=== PATIENT | female | born 1985 | race Caucasian/White ===

== ENCOUNTER 2017-05-03 08:17 | Emergency (ER) | payer BC ==
[2017-05-03 08:34] VITALS: BP 130/84
--- NOTE | 2017-05-03 08:43 | UC ---
Throat Pain/Nasal Chuy HPI - HPI Summary HPI Summary: sore throat x 1 weeks cold sx for the past 2 weeks, nasal congestion , pnd, cough low grade fever, chills, - History of Current Complaint Chief Complaint: UCGeneralIllness Stated Complaint: SORE THROAT,EARS Time Seen by Provider: 05/03/17 08:35 Hx Obtained From: Patient Hx Last Menstrual Period: 04/19/17 ?: No Onset/Duration: Gradual Onset, Lasting Weeks - 1, Still Present Severity: Moderate Cough: Nonproductive Associated Signs & Symptoms: Positive: Hoarseness, Nasal Discharge, Fever. Negative: Dysphagia, FB Sensation, Drooling, Wheezing, Sinus Discomfort, Vomiting, Rash - Allergies/Home Medications Allergies/Adverse Reactions: Allergies Allergy/AdvReac Type Severity Reaction Status Date / Time Cefaclor [From [facility]] Allergy Hives Verified 05/03/17 08:34 Home Medications: Home Medications FLUoxetine CAP* [PROzac CAP*] 40 mg PO DAILY 05/03/17 [History Confirmed ] buPROPion TAB* [Wellbutrin TAB*] 150 mg PO DAILY 05/03/17 [History Confirmed ] PMH/Surg Hx/FS Hx/Imm Hx Psychological History: Depression - Surgical History Surgical History: None - Family History Known Family History: Negative: Diabetes - Social History Alcohol Use: None Substance Use Type: None Smoking Status (MU): Never Smoked Tobacco Review of Systems Constitutional: Fever, Chills Skin: Negative Eyes: Negative ENT: Sore Throat, Nasal Discharge Respiratory: Cough Cardiovascular: Negative Gastrointestinal: Negative Is Patient Immunocompromised?: No All Other Systems Reviewed And Are Negative: Yes Physical Exam Triage Information Reviewed: Yes Appearance: Well-Appearing, No Pain Distress, Well-Nourished Vital Signs: Initial Vital Signs Temp 98.4 F 05/03/17 08:28 Pulse 70 05/03/17 08:28 Resp 18 05/03/17 08:28 BP 130/84 05/03/17 08:28 Pulse Ox 100 05/03/17 08:28 Vital Signs Reviewed: Yes Eyes: Positive: Conjunctiva Clear ENT: Positive: Normal ENT inspection, Hearing grossly normal, Pharyngeal erythema, Nasal congestion, Nasal drainage, TMs normal Neck: Positive: Supple, Nontender, No Lymphadenopathy Respiratory: Positive: Chest non-tender, Lungs clear, Normal breath sounds Cardiovascular: Positive: RRR, No Murmur, Pulses Normal Abdominal Exam: Normal Skin Exam: Normal Throat Pain/Nasal Course/Dx - Differential Dx/Diagnosis Provider Diagnoses: viral pharyngitis Discharge - Discharge Plan Condition: Stable Disposition: HOME Patient Education Materials: Pharyngitis (ED) Referrals: Non Staff,Doctor [Primary Care Provider] - If Needed
== END 2017-05-03 08:59 | disposition home or self-care (01) ==
LOC: UCCORT 08:17
DX: J02.8 Acute pharyngitis due to other specified organisms (principal); B97.89 Other viral agents as the cause of diseases classified elsewhere; Z88.1 Allergy status to other antibiotic agents; F32.9 Major depressive disorder, single episode, unspecified; Z79.899 Other long term (current) drug therapy
CPT/HCPCS: 87651; 99201; G0463

== ENCOUNTER 2018-05-12 17:32 | Emergency (ER) | payer BC ==
[2018-05-12 18:17] VITALS: BP 134/92
[2018-05-12] MEDS ORDERED: Lidocaine 1%* 5 ML VIAL INJ ONE (18:21)
--- NOTE | 2018-05-12 18:24 | UC ---
Skin Complaint HPI - HPI Summary HPI Summary: 32-year-old woman comes in with a chief complaint of a body piercing on her sternum that got partially pulled out today when the dog jumped on her and she is unable to get the rest of the way out. It hurts if she tries to put any more doesn't hurt if she doesn't pull. Patient feels well otherwise. - History of Current Complaint Chief Complaint: [facility] Time Seen by Provider: 05/12/18 18:19 Stated Complaint: PIERCING COMPLAINT Hx Last Menstrual Period: 04/19/17 Pain Intensity: 0 - Allergy/Home Medications Allergies/Adverse Reactions: Allergies Allergy/AdvReac Type Severity Reaction Status Date / Time [facility] Allergy Hives Verified 05/12/18 18:15 PMH/Surg Hx/FS Hx/Imm Hx Previously Healthy: Yes - Surgical History Surgical History: None - Family History Known Family History: Negative: Diabetes - Social History Alcohol Use: Occasionally Substance Use Type: None Smoking Status (MU): Never Smoked Tobacco Review of Systems All Other Systems Reviewed And Are Negative: Yes Constitutional: Positive: Negative Skin: Positive: Other - see hpi Eyes: Positive: Negative ENT: Positive: Negative Respiratory: Positive: Negative Cardiovascular: Positive: Negative Gastrointestinal: Positive: Negative Motor: Positive: Negative Neurovascular: Positive: Negative Musculoskeletal: Positive: Negative Neurological: Positive: Negative Psychological: Positive: Negative Is Patient Immunocompromised?: No Physical Exam Triage Information Reviewed: Yes Appearance: Well-Appearing, No Pain Distress, Well-Nourished Vital Signs: Initial Vital Signs Temp 97.6 F 05/12/18 18:12 Pulse 62 05/12/18 18:12 Resp 15 05/12/18 18:12 BP 134/92 05/12/18 18:12 Pulse Ox 100 05/12/18 18:12 Vital Signs Reviewed: Yes Eye Exam: Normal Eyes: Positive: Conjunctiva Clear Neck exam: Normal Neck: Positive: Supple Respiratory: Positive: No respiratory distress Musculoskeletal Exam: Normal Musculoskeletal: Positive: Strength Intact, ROM Intact Neurological Exam: Normal Neurological: Positive: Alert, Muscle Tone Normal Psychological Exam: Normal Psychological: Positive: Age Appropriate Behavior Skin: Positive: Other - There is a metal piercing a snf of the sternal skin goes into the subcutaneous tissue. No bleeding or erythema. Course/Dx - Course Course Of Treatment: To remove the metal piercing I cleaned the area with Hibiclens and use 1% lidocaine. Then used a pair of needle drivers to pull the piercing out. Minimal bleeding afterwards antibiotic recommended dressing applied by nursing. Patient's allergic to cephalosporin therefore use Augmentin 875 mg's by mouth twice a day for 7 days. Reevaluate if worsening or other questions or concerns. - Diagnoses Provider Diagnosis: Foreign body of skin of chest Discharge - Sign-Out/Discharge Documenting (check all that apply): Patient Departure All imaging exams completed and their final reports reviewed: No Studies - Discharge Plan Condition: Stable Disposition: HOME Prescriptions: Amoxicillin/Clavulanate TAB* [Augmentin TAB 875*] 875 mg PO BID #14 tab Patient Education Materials: Soft Tissue Foreign Body (ED) Referrals: Giovanny LAFLEUR,Jose Manuel Amor [Primary Care Provider] - Additional Instructions: FOLLOW UP WITH YOUR DOCTOR IF NOT COMPLETELY IMPROVED. GET RECHECKED SOONER WITH ANY WORSENING OF YOUR CONDITION OR QUESTIONS OR CONCERNS. - Billing Disposition and Condition Condition: STABLE Disposition: Home
== END 2018-05-12 18:51 | disposition home or self-care (01) ==
LOC: UCCORT 17:32
DX: S20.359A Superficial foreign body of unspecified front wall of thorax, initial encounter (principal); Z88.1 Allergy status to other antibiotic agents; W45.8XXA Other foreign body or object entering through skin, initial encounter; Y92.9 Unspecified place or not applicable
CPT/HCPCS: 10120; 99212; G0463